=== PATIENT | male | born 1955 | race Caucasian/White ===

== ENCOUNTER 2017-05-09 13:00 | Outpatient (RCR) | payer OTHER | END 2017-05-10 12:39 | disposition still patient (30) | LOC: MKS.ESL.OT 13:00 | DX: I63.9 Cerebral infarction, unspecified (principal) ==

== ENCOUNTER 2017-07-26 12:30 | Outpatient (RCR) | payer OTHER | END 2017-07-30 | disposition home or self-care (01) | LOC: WSST | DX: I69.328 Other speech and language deficits following cerebral infarction (principal); I69.351 Hemiplegia and hemiparesis following cerebral infarction affecting right dominant side ==

== ENCOUNTER 2017-10-25 12:30 | Outpatient (RCR) | payer OTHER | END 2017-10-29 | disposition home or self-care (01) | LOC: MKS.ESL.PT | DX: I69.328 Other speech and language deficits following cerebral infarction (principal); I69.351 Hemiplegia and hemiparesis following cerebral infarction affecting right dominant side; I69.354 Hemiplegia and hemiparesis following cerebral infarction affecting left non-dominant side; I10 Essential (primary) hypertension; E11.9 Type 2 diabetes mellitus without complications ==

== ENCOUNTER 2017-11-02 13:48 | Day surgery (SDC) | payer OTHER ==
[~2017-11-02] VITALS: Ht 181.6 cm; Wt 72.7 kg
[2017-11-02] MEDS ORDERED: TRADJENTA5 MG PO (14:19)
[2017-11-02] MEDS ORDERED: ZANTAC 150MG T150 MG PO (14:19)
[2017-11-02] MEDS ORDERED: ZESTRIL 5MG5 MG PO (14:20)
[2017-11-02] MEDS ORDERED: FLOMAX 0.40.4 MG/CAP PO (14:20)
[2017-11-02] MEDS ORDERED: COLACE 100100 MG/CAP PO (14:21)
[2017-11-02] MEDS ORDERED: PLAVIX 75MG TAB75 MG PO (14:21)
[2017-11-02] MEDS ORDERED: CLARITIN 1010 MG/TAB PO (14:22)
[2017-11-02] MEDS ORDERED: CELEXA40 MG PO (14:22)
[2017-11-02] MEDS ORDERED: CEFTIN 250250 MG/TAB PO (14:23)
[2017-11-02] MEDS ORDERED: LIPITOR 80MG80 MG PO (14:23)
[2017-11-02] MEDS ORDERED: ASPIRIN E.C. 8181 MG PO (14:24)
[2017-11-02] MEDS ORDERED: NORVASC 10MG10 MG PO (14:24)
[2017-11-02 14:35] VITALS: BP 146/87; PULSE 72; TEMP 98.4
[2017-11-02 16:00] VITALS: BP 135/78; PULSE 69; TEMP 98
[2017-11-02 16:15] VITALS: BP 145/74; PULSE 68; TEMP 98
[2017-11-02 16:30] VITALS: BP 147/73; PULSE 72; TEMP 98
[2017-11-02 16:45] VITALS: BP 144/73; PULSE 70; TEMP 98
== END 2017-11-02 19:01 | disposition home or self-care (01) ==
LOC: SDCO 13:48 → SURG 16:00 → SDCO 19:01
DX: K86.89 Other specified diseases of pancreas (principal); K31.9 Disease of stomach and duodenum, unspecified; K59.00 Constipation, unspecified; E78.00 Pure hypercholesterolemia, unspecified; I12.9 Hypertensive chronic kidney disease with stage 1 through stage 4 chronic kidney disease, or unspecified chronic kidney disease; D50.9 Iron deficiency anemia, unspecified; G47.33 Obstructive sleep apnea (adult) (pediatric); K21.9 Gastro-esophageal reflux disease without esophagitis; N18.9 Chronic kidney disease, unspecified; E11.22 Type 2 diabetes mellitus with diabetic chronic kidney disease; Z79.82 Long term (current) use of aspirin; Z79.01 Long term (current) use of anticoagulants; Z80.0 Family history of malignant neoplasm of digestive organs; Z98.52 Vasectomy status; Z79.02 Long term (current) use of antithrombotics/antiplatelets; Z86.73 Personal history of transient ischemic attack (TIA), and cerebral infarction without residual deficits; Z79.2 Long term (current) use of antibiotics
CPT/HCPCS: OP; C1769; J7030; Q9967

== ENCOUNTER 2018-01-24 12:45 | Outpatient (RCR) | payer OTHER ==
[~2018-01-24 12:45] MED LIST: ASPIRIN E.C. 8181 MG PO; CEFTIN 250250 MG/TAB PO; CELEXA40 MG PO; CLARITIN 1010 MG/TAB PO; COLACE 100100 MG/CAP PO; FLOMAX 0.40.4 MG/CAP PO; LIPITOR 80MG80 MG PO; NORVASC 10MG10 MG PO; PLAVIX 75MG TAB75 MG PO; TRADJENTA5 MG PO; ZANTAC 150MG T150 MG PO; ZESTRIL 5MG5 MG PO
== END 2018-01-28 | disposition home or self-care (01) ==
LOC: WSST
DX: I69.313 Psychomotor deficit following cerebral infarction (principal); I69.354 Hemiplegia and hemiparesis following cerebral infarction affecting left non-dominant side; I69.351 Hemiplegia and hemiparesis following cerebral infarction affecting right dominant side; I69.928 Other speech and language deficits following unspecified cerebrovascular disease

== ENCOUNTER 2018-04-23 12:45 | Outpatient (RCR) | payer OTHER | END 2018-04-29 | disposition home or self-care (01) | LOC: WSST | DX: I69.334 Monoplegia of upper limb following cerebral infarction affecting left non-dominant side (principal); I69.331 Monoplegia of upper limb following cerebral infarction affecting right dominant side; I69.391 Dysphagia following cerebral infarction; R13.12 Dysphagia, oropharyngeal phase; I69.322 Dysarthria following cerebral infarction; I69.321 Dysphasia following cerebral infarction ==

== ENCOUNTER 2018-07-30 12:45 | Outpatient (RCR) | payer OTHER | END 2018-07-31 | disposition home or self-care (01) | LOC: MKS.ESL.PT | DX: I69.391 Dysphagia following cerebral infarction (principal); I69.322 Dysarthria following cerebral infarction ==

== ENCOUNTER → 2018-09-18 | Outpatient (CLI) | payer MEDICARE, OTHER | LOC: COL.RAD 15:52 | DX: I63.9 Cerebral infarction, unspecified (principal); Z87.19 Personal history of other diseases of the digestive system ==

== ENCOUNTER 2018-09-25 08:35 | Outpatient (CLI) | payer MEDICARE, OTHER ==
--- NOTE | 2018-09-20 10:30 | NUR ---
WILL CALL BACK AROUND [phone]
[~2018-09-25] VITALS: Ht 181.6 cm; Wt 170.0 kg
[2018-09-25] VITALS (7 sets, daily range): BP systolic 109–140; BP diastolic 50–87; PULSE 71–81; TEMP 97.9
[~2018-09-25 08:35] MED LIST changes: +LASIX 20MG TABL20 MG PO; +VITAMIN D 50,1.25 MG PO; +WELLBUTRIN 75MG75 MG PO; +[UNRECOGNIZED DRUG - OTHER]
[2018-09-25] MEDS ORDERED: LIPITOR 80MG80 MG PO (08:49)
[2018-09-25] MEDS ORDERED: cranberry PO (08:51)
--- NOTE | 2018-09-25 10:15 | NUR ---
Pt to EU 9 per cart s/p LP. Pt resting well, at bedside.
[2018-09-25 11:25] LABS: CSF APPEARANCE CLEAR; CSF COLOR COLORLESS; CSF MONONUCLEAR 100 % (70-100); CSF POLYMORPHONUCLEAR 0 % (0-6); CSF RBC 4 /mm3 (0-0)
[2018-09-25 11:26] LABS: GLUCOSE,CSF 116 mg/dL (40-70); TOTAL PROTEIN,CSF 112 mg/dL (15-45)
--- NOTE | 2018-09-25 12:00 | NUR ---
Pt has voided and reggie PO intake s n/v.
--- NOTE | 2018-09-25 12:15 | NUR ---
Pt transfered to w/c with assist of 2 and gait belt. Pt discharged per w/c by nurse with .
== END 2018-09-25 12:44 | disposition home or self-care (01) ==
LOC: COL.RAD 08:35
PROVIDERS: Psychiatry & Neurology Neurology
DX: R93.89 Abnormal findings on diagnostic imaging of other specified body structures (principal)

== ENCOUNTER 2018-10-29 13:00 | Outpatient (RCR) | payer MEDICARE, OTHER ==
[~2018-10-29 13:00] MED LIST changes: +cranberry PO
== END 2018-10-30 ==
LOC: MKS.ESL.OT
DX: I69.322 Dysarthria following cerebral infarction (principal); I69.391 Dysphagia following cerebral infarction; I69.344 Monoplegia of lower limb following cerebral infarction affecting left non-dominant side; I69.3 Sequelae of cerebral infarction; R13.12 Dysphagia, oropharyngeal phase

== ENCOUNTER 2019-01-28 12:45 | Outpatient (RCR) | payer MEDICARE, OTHER | END 2019-01-29 | disposition still patient (30) | LOC: WSST | DX: I63.9 Cerebral infarction, unspecified (principal); R47.1 Dysarthria and anarthria; R13.12 Dysphagia, oropharyngeal phase ==

== ENCOUNTER 2019-04-24 12:45 | Outpatient (RCR) | payer MEDICARE, OTHER | END 2019-04-30 | disposition home or self-care (01) | LOC: WSST | DX: I63.9 Cerebral infarction, unspecified (principal); R13.12 Dysphagia, oropharyngeal phase; R47.1 Dysarthria and anarthria ==

== ENCOUNTER 2019-05-22 12:45 | Outpatient (RCR) | payer MEDICARE, OTHER | END 2019-07-30 | disposition home or self-care (01) | LOC: WSST | DX: I69.991 Dysphagia following unspecified cerebrovascular disease (principal); R13.12 Dysphagia, oropharyngeal phase; I69.922 Dysarthria following unspecified cerebrovascular disease ==

== ENCOUNTER → 2020-05-10 | Outpatient (RCR) | payer MEDICARE, OTHER | END | disposition home or self-care (01) | LOC: WSST → MKS.ESL.PT 04-19 13:15 → WSST 04-21 13:00 → MKS.ESL.OT 05-03 13:00 → WSST 05-05 13:15 | DX: I69.922 Dysarthria following unspecified cerebrovascular disease (principal); I69.951 Hemiplegia and hemiparesis following unspecified cerebrovascular disease affecting right dominant side; I69.998 Other sequelae following unspecified cerebrovascular disease ==

== ENCOUNTER 2020-11-10 13:15 | Outpatient (RCR) | payer MEDICARE, OTHER | END 2020-11-14 | disposition home or self-care (01) | LOC: MKS.ESL.PT | DX: R53.1 Weakness (principal); Z86.73 Personal history of transient ischemic attack (TIA), and cerebral infarction without residual deficits ==

== ENCOUNTER 2021-02-07 13:15 | Outpatient (RCR) | payer MEDICARE, OTHER | END 2021-02-13 | disposition home or self-care (01) | LOC: MKS.ESL.PT | DX: R53.1 Weakness (principal); R47.1 Dysarthria and anarthria; Z86.73 Personal history of transient ischemic attack (TIA), and cerebral infarction without residual deficits ==

== ENCOUNTER 2021-05-04 13:15 | Outpatient (RCR) | payer MEDICARE, OTHER | END 2021-05-06 | disposition home or self-care (01) | LOC: MKS.ESL.PT | DX: I63.9 Cerebral infarction, unspecified (principal) | CPT/HCPCS: G0283-GP ==

== ENCOUNTER → 2021-07-04 | Outpatient (RCR) | payer MEDICARE, OTHER | END | disposition home or self-care (01) | LOC: MKS.ESL.PT | DX: R53.1 Weakness (principal); R47.1 Dysarthria and anarthria; Z86.73 Personal history of transient ischemic attack (TIA), and cerebral infarction without residual deficits ==

== ENCOUNTER 2021-08-03 14:00 | Outpatient (RCR) | payer MEDICARE, OTHER | END 2021-08-04 | disposition still patient (30) | LOC: MKS.ESL.PT | DX: R53.1 Weakness (principal); R47.1 Dysarthria and anarthria; Z86.73 Personal history of transient ischemic attack (TIA), and cerebral infarction without residual deficits ==

== ENCOUNTER 2021-08-31 14:00 | Outpatient (RCR) | payer MEDICARE, OTHER | END 2021-09-03 | disposition home or self-care (01) | LOC: WSST | DX: I69.322 Dysarthria following cerebral infarction (principal); R53.1 Weakness ==

== ENCOUNTER 2021-09-28 14:45 | Outpatient (RCR) | payer MEDICARE, OTHER | END 2021-10-04 | disposition still patient (30) | LOC: MKS.ESL.OT | DX: I69.322 Dysarthria following cerebral infarction (principal) ==

== ENCOUNTER 2021-10-27 13:00 | Outpatient (RCR) | payer MEDICARE, OTHER | END 2021-11-03 | disposition still patient (30) | LOC: MKS.ESL.OT | DX: R53.1 Weakness (principal); R47.1 Dysarthria and anarthria; Z86.73 Personal history of transient ischemic attack (TIA), and cerebral infarction without residual deficits ==

== ENCOUNTER 2021-11-15 13:00 | Outpatient (RCR) | payer MEDICARE, OTHER ==
[2021-11-16] MEDS ORDERED: LIORESAL 1010 MG/TAB PO (16:36)
[2021-11-16] MEDS ORDERED: GLUCOTROL 5M5 MG/TAB PO (16:36)
[2021-11-16] MEDS ORDERED: PRIL40 PO (22:56)
[2021-11-16] MEDS ORDERED: PEPCID 20MG TAB20 MG PO (22:57)
[2021-11-16] MEDS ORDERED: OMEGA-3 1000 MG1 CAP PO (22:58)
[2021-11-16] MEDS ORDERED: TYLENOL 325MG325 MG PO (22:59)
[2021-11-16] MEDS ORDERED: ORAJEL MM (23:00)
[2021-11-16] MEDS ORDERED: NUMBONEX30 GM TP (23:00)
[2021-11-16] MEDS ORDERED: MIRALAX PA17 GM/Dose PO (23:01)
[2021-11-22] MEDS ORDERED: AMOXICILLIN/CLA1 TA1 PO (10:18)
== END 2021-12-04 | disposition home or self-care (01) ==
LOC: MKS.ESL.OT
DX: I69.322 Dysarthria following cerebral infarction (principal); I69.398 Other sequelae of cerebral infarction

== ENCOUNTER 2021-11-16 14:12 | Inpatient (IN) | payer MEDICARE, OTHER ==
[~2021-11-16] VITALS: Ht 180.3 cm; Wt 77.3 kg
[2021-11-16 14:56] LABS: HEMATOCRIT 37.9 % (42.0-52.0); HEMOGLOBIN 12.4 g/dl (13.5-18.0); MEAN CELL VOLUME 85 fl (80.0-100.0); MEAN CORPUSCULAR HEMOGLOBIN 28 pg (27-31); MEAN CORPUSCULAR HGB CONC 33 g/dl (33.0-37.0); MEAN PLATELET VOLUME 9.6 fl (7.4-10.4); PLATELET COUNT 249 K/mm3 (130-400); RED BLOOD COUNT 4.48 M/mm3 (4.20-5.60); REDCELL DISTRIBUTION WIDTH-CV 13.8 % (11.5-14.5)
[2021-11-16 15:12] LABS: ALBUMIN 3.7 gm/dL (3.4-4.8); BILIRUBIN,TOTAL 0.7 mg/dL (0.2-1.2); CALCIUM 9.3 mg/dL (8.4-10.2); CREATININE, serum 2.33 mg/dL (0.72-1.25); POTASSIUM 4.1 mmol/L (3.5-4.5); TOTAL PROTEIN 7.7 gm/dL (6.2-8.1)
[2021-11-16 15:27] LABS: BAND 3 % (0-10); LYMPHOCYTE 2 % (20.0-51.0); NEUTROPHILS 87 % (42.0-75.2); PLATELET ESTIMATE NORMAL (NORMAL)
[2021-11-16 16:26] LABS: COLLECTION METHOD CLEAN CATCH
[2021-11-16] MEDS ORDERED: GLUCOTROL 5M5 MG/TAB PO (16:36)
[2021-11-16] MEDS ORDERED: LIORESAL 1010 MG/TAB PO (16:36)
[2021-11-16 16:56] LABS: PH 6 (5-8); SQUAMOUS EPITHELIAL 0-2 /hpf (0-10); URINE APPEARANCE Clear (CLEAR/HAZY); URINE BACTERIA None Seen /hpf (NONE SEEN); URINE BLOOD Negative (NEGATIVE); URINE COLOR Yellow (YELLOW); URINE GLUCOSE 3+ (NEGATIVE); URINE KETONE 1+ (NEGATIVE); URINE NITRATE Negative (NEGATIVE); URINE PROTEIN(semi-quant) 2+ (NEGATIVE); URINE RBC 0-2 /hpf (0-2); URINE UROBILINOGEN Negative (NEGATIVE)
[2021-11-16 18:28] VITALS: BP 155/87; PULSE 80; TEMP 98.6
--- NOTE | 2021-11-16 19:03 | NUR ---
Pt recently arrived to the floor from ED. Started IV fluids and finished infusing the antibiotic from ED. Report given to roving frame tender
[2021-11-16 19:58] VITALS: BP 148/72; PULSE 89; TEMP 99.8
[2021-11-16] MEDS ORDERED: PRIL40 PO (22:56)
[2021-11-16] MEDS ORDERED: PEPCID 20MG TAB20 MG PO (22:57)
[2021-11-16] MEDS ORDERED: OMEGA-3 1000 MG1 CAP PO (22:58)
[2021-11-16] MEDS ORDERED: TYLENOL 325MG325 MG PO (22:59)
[2021-11-16] MEDS ORDERED: ORAJEL MM (23:00)
[2021-11-16] MEDS ORDERED: NUMBONEX30 GM TP (23:00)
[2021-11-16] MEDS ORDERED: MIRALAX PA17 GM/Dose PO (23:01)
[2021-11-17] VITALS (8 sets, daily range): BP systolic 152–175; BP diastolic 70–85; PULSE 83–98; TEMP 96.8–100.3
[2021-11-17 02:24] LABS: COLLECTION METHOD CLEAN CATCH
--- NOTE | 2021-11-17 02:24 | NUR ---
PATIENT HAS NOT VOIDED ALL SHIFT. BLADDER SCAN REVEALED 804 IN BLADDER. CALL PLACED TO KAREN DAWSON, NEW ORDER FOR CASSIDY AND UA. 16F CASSIDY INSERTED WITH 10 MLS IN BALLOON. 800 MLS OUT INITIALLY. UA/CULTURE SENT DOWN PER ORDER. AWAITING RESULTS.
--- NOTE | 2021-11-17 02:31 | NUR ---
PATIENT IN BED. DENIES PAIN BUT HAS BEEN NAUSEATED ALL NIGHT. VOMITED X3 TIMES SMALL AMOUNT OF GREEN EMESIS. PATIENT HAS ALSO BEEN DRY HEAVING BETWEEN EPISODES. CALL TO KAREN DAWSON, AND PRN ZOFRAN AND PHENERGAN ORDERED AND GIVEN. PATIENT REMAINS NPO AT THIS TIME. IVF TO R UPPER ARM IV. ZOSYN INFUSING INTERMITTENTLY. HS MEDS PER EMAR. DENIES ADDITIONAL NEEDS AT THIS TIME.
[2021-11-17 02:32] LABS: MUCOUS Present (NOT PRESENT); PH 5 (5-8); SQUAMOUS EPITHELIAL 0-2 /hpf (0-10); URINE APPEARANCE Clear (CLEAR/HAZY); URINE BACTERIA None Seen /hpf (NONE SEEN); URINE BLOOD Negative (NEGATIVE); URINE COLOR Yellow (YELLOW); URINE GLUCOSE 3+ (NEGATIVE); URINE KETONE Trace (NEGATIVE); URINE NITRATE Negative (NEGATIVE); URINE PROTEIN(semi-quant) 3+ (NEGATIVE); URINE UROBILINOGEN Negative (NEGATIVE); URINE WBC 0-2 /hpf (0-2)
--- NOTE | 2021-11-17 04:16 | NUR ---
TEMP 100.2 AND BP 167/87 REPORTED TO KAREN DAWSON. ORDER FOR RECTAL TYLENOL. OK WITH BP WHERE IT IS FOR NOW.
[2021-11-17 07:03] LABS: HEMOGLOBIN 11.2 g/dl (13.5-18.0); MEAN CELL VOLUME 87 fl (80.0-100.0); MEAN CORPUSCULAR HEMOGLOBIN 28 pg (27-31); MEAN CORPUSCULAR HGB CONC 32 g/dl (33.0-37.0); MEAN PLATELET VOLUME 10.6 fl (7.4-10.4); PLATELET COUNT 238 K/mm3 (130-400); RED BLOOD COUNT 4.07 M/mm3 (4.20-5.60); REDCELL DISTRIBUTION WIDTH-CV 14.1 % (11.5-14.5)
[2021-11-17 07:13] LABS: HEMATOCRIT 35.3 % (42.0-52.0)
[2021-11-17 07:23] LABS: ALBUMIN 3.1 gm/dL (3.4-4.8); CREATININE, serum 2.21 mg/dL (0.72-1.25); MAGNESIUM 1.7 mg/dL (1.6-2.6); PHOSPHOROUS 2.9 mg/dL (2.3-4.7); POTASSIUM 3.7 mmol/L (3.5-4.5)
[2021-11-17 07:33] LABS: BAND 12 % (0-10); BASOPHIL 2 % (0-2); HYPOCHROMIA 2+; LYMPHOCYTE 5 % (20.0-51.0); NEUTROPHILS 65 % (42.0-75.2)
[2021-11-17 07:34] LABS: BURR CELLS 1+; OVALOCYTES 1+; PLATELET ESTIMATE NORMAL (NORMAL); POIKILOCYTOSIS 1+
--- NOTE | 2021-11-17 07:36 | NUR ---
INFORMED BEAN ALY OF PATIETNS CRITIAL WBC. NO NEW ORDERS GIVEN, PENDING ABD US
--- NOTE | 2021-11-17 14:19 | NUR ---
Sierra: Denominational Situation: Back Facer went to room on rounds Background: PT was resting and content Assessment: No needs right now. PT appreciated the visit Recommendation: Back Facer will follow up as needed
--- NOTE | 2021-11-17 16:32 | NUR ---
Warper Tender met with patient and patient's , Sierra (ph#[phone]) to discuss discharge planning. Patient has difficulty with communicating so Sierra answered questions on his behalf. Sierra advised she is patient's caregiver and provides total assistance with all ADLS. Patient goes to the [facility] for primary care and medications. Patient has a wheelchair, sit to stand lift, standing walker, and bedside commode at home. Patient goes to physical therapy twice a week at [facility] [place] on [address]. Sierra provided DPOA-HC which SW placed on patient's chart. Sierra also advised they have a bath aide from [facility]. Plan will be for return home at time of discharge. Discharge Plan: Home with and current supports
--- NOTE | 2021-11-17 19:17 | NUR ---
RECEIVED CHANGE OF SHIFT REPORT FROM DAY SHIFT RN.
--- NOTE | 2021-11-17 22:25 | NUR ---
DR FERGUSON CALLED IN TO NURSE, WANTING TO HAVE PATIENT TAKE ASA ORDERED, AND PATIENT CAN HAVE CLEAR LIQUIDS IF PAIENT HAS NO N/V/ABD PAIN. PATIENT INFORMED AND TOLERATED NECTAR THICKENED WATER WITH NO CHOKING OR C/O NAUSEA AT THIS TIME.
--- NOTE | 2021-11-17 23:09 | NUR ---
TOLERATED CRUSHED ASA WITH NECTAR THICKENED WATER WITH NO C/O NAUSEA/VOMITIING/ABD PAIN WITH ORAL MED/WATER TAKEN. NO OTHER NEEDS REPORTED BY PATIENT.
[2021-11-18 03:30] VITALS: BP 158/77; PULSE 76; TEMP 97.6
[2021-11-18 06:44] LABS: HEMOGLOBIN 11.3 g/dl (13.5-18.0); MEAN CELL VOLUME 88 fl (80.0-100.0); MEAN CORPUSCULAR HEMOGLOBIN 28 pg (27-31); MEAN CORPUSCULAR HGB CONC 32 g/dl (33.0-37.0); MEAN PLATELET VOLUME 10.4 fl (7.4-10.4); PLATELET COUNT 223 K/mm3 (130-400); RED BLOOD COUNT 4.05 M/mm3 (4.20-5.60); REDCELL DISTRIBUTION WIDTH-CV 14.5 % (11.5-14.5)
[2021-11-18 06:47] LABS: HEMATOCRIT 35.6 % (42.0-52.0)
[2021-11-18 06:51] LABS: ALBUMIN 2.5 gm/dL (3.4-4.8); CALCIUM 9.4 mg/dL (8.4-10.2); CREATININE, serum 2.29 mg/dL (0.72-1.25); MAGNESIUM 1.7 mg/dL (1.6-2.6); PHOSPHOROUS 2.8 mg/dL (2.3-4.7); POTASSIUM 3.4 mmol/L (3.5-4.5)
[2021-11-18 07:09] LABS: BAND 9 % (0-10); LYMPHOCYTE 3 % (20.0-51.0); NEUTROPHILS 82 % (42.0-75.2); PLATELET ESTIMATE NORMAL (NORMAL)
--- NOTE | 2021-11-18 07:24 | NUR ---
CHANGE OF SHIFT REPORT GIVEN TO DAY SHIFT RNOSCAR.
[2021-11-18 08:00] VITALS: BP 146/90; PULSE 84; TEMP 98.5
[2021-11-18 12:00] VITALS: BP 155/74; TEMP 99.1
[2021-11-18 15:54] VITALS: BP 147/72; PULSE 81; TEMP 97.9
[2021-11-18 16:59] LABS: CLOSTRIDIUM DIFF A/B NEG; CLOSTRIDIUM DIFF A/B INTERP No C.diff present
[2021-11-18 20:19] VITALS: BP 141/74; PULSE 79; TEMP 98.6
[2021-11-18 21:12] LABS: HEMOGLOBIN 11.1 g/dl (13.5-18.0)
[2021-11-18 21:13] LABS: HEMATOCRIT 34.1 % (42.0-52.0)
--- NOTE | 2021-11-18 21:36 | NUR ---
ASSESSMENT COMPLETE. PT SITTING UP IN BED. A&O. NO COMPLAINTS OF PAIN. PT. TURNED TO LEFT SIDE. CASSIDY SECURED AND DEPENDENT TO GRAVITY. ANTIBIOTICS INFUSING TO LEFT AC. CALL LIGHT IN REACH. NO FURHTER NEEDS AT THIS TIME.
[2021-11-18 23:27] VITALS: BP 152/79; PULSE 74; TEMP 97.8
[2021-11-19 03:53] VITALS: BP 152/72; PULSE 80; TEMP 98.9
[2021-11-19 05:59] LABS: MEAN CELL VOLUME 88 fl (80.0-100.0); MEAN CORPUSCULAR HGB CONC 32 g/dl (33.0-37.0); MEAN PLATELET VOLUME 10.5 fl (7.4-10.4); PLATELET COUNT 211 K/mm3 (130-400); RED BLOOD COUNT 3.52 M/mm3 (4.20-5.60); REDCELL DISTRIBUTION WIDTH-CV 14.6 % (11.5-14.5)
[2021-11-19 06:20] LABS: ALBUMIN 2.1 gm/dL (3.4-4.8); CALCIUM 8.9 mg/dL (8.4-10.2); CREATININE, serum 2.47 mg/dL (0.72-1.25); MAGNESIUM 1.6 mg/dL (1.6-2.6); PHOSPHOROUS 2.4 mg/dL (2.3-4.7); POTASSIUM 3.4 mmol/L (3.5-4.5)
[2021-11-19 06:31] LABS: HEMATOCRIT 30.8 % (42.0-52.0); HEMOGLOBIN 9.8 g/dl (13.5-18.0); MEAN CORPUSCULAR HEMOGLOBIN 28 pg (27-31)
[2021-11-19 06:35] LABS: BAND 8 % (0-10); EOSINOPHIL 1 % (0-4); LYMPHOCYTE 7 % (20.0-51.0); NEUTROPHILS 80 % (42.0-75.2); PLATELET ESTIMATE NORMAL (NORMAL)
[2021-11-19 06:37] LABS: HYPOCHROMIA 1+
[2021-11-19 08:00] VITALS: BP 145/76; PULSE 76; TEMP 99.3
[2021-11-19 12:00] VITALS: BP 155/72; PULSE 83; TEMP 99.2
[2021-11-19 15:28] VITALS: BP 124/72; PULSE 84; TEMP 98.3
[2021-11-19 20:20] VITALS: BP 165/82; PULSE 81; TEMP 98.8
--- NOTE | 2021-11-19 22:30 | NUR ---
ASSESSMENT COMPLETE. PT. SITTING UP IN BED WATCHING TV. A&O. NO COMPLAINTS OF PAIN. INT TO LEFT AC PATENT. CALL LIGHT IN REACH. NO FURHTER NEEDS AT THIS TIME.
[2021-11-19 23:20] VITALS: BP 159/85; PULSE 73; TEMP 100.1
[2021-11-20 03:53] VITALS: BP 137/65; PULSE 80; TEMP 79
[2021-11-20 07:12] LABS: MEAN CELL VOLUME 85 fl (80.0-100.0); MEAN CORPUSCULAR HEMOGLOBIN 28 pg (27-31); MEAN CORPUSCULAR HGB CONC 33 g/dl (33.0-37.0); MEAN PLATELET VOLUME 10.6 fl (7.4-10.4); PLATELET COUNT 242 K/mm3 (130-400); RED BLOOD COUNT 3.56 M/mm3 (4.20-5.60); REDCELL DISTRIBUTION WIDTH-CV 14.4 % (11.5-14.5)
[2021-11-20 07:16] LABS: HEMATOCRIT 30.2 % (42.0-52.0)
[2021-11-20 07:22] VITALS: BP 148/77; PULSE 77; TEMP 98.9
[2021-11-20 07:50] LABS: BAND 18 % (0-10); EOSINOPHIL 1 % (0-4); LYMPHOCYTE 9 % (20.0-51.0); NEUTROPHILS 69 % (42.0-75.2)
[2021-11-20 07:51] LABS: PLATELET ESTIMATE NORMAL (NORMAL)
[2021-11-20 08:01] LABS: CALCIUM 8.7 mg/dL (8.4-10.2); CREATININE, serum 2.49 mg/dL (0.72-1.25); MAGNESIUM 1.7 mg/dL (1.6-2.6); PHOSPHOROUS 2.3 mg/dL (2.3-4.7); POTASSIUM 3.3 mmol/L (3.5-4.5)
[2021-11-20 11:02] VITALS: BP 148/50; PULSE 81; TEMP 99.3
[2021-11-20 15:15] VITALS: BP 143/71; PULSE 74; TEMP 99.7
[2021-11-20 20:05] VITALS: BP 155/70; PULSE 76; TEMP 99.1
[2021-11-20 23:57] VITALS: BP 144/72; PULSE 72; TEMP 98.8
--- NOTE | 2021-11-21 01:50 | NUR ---
PATIENT IN BED ON ROOM ENTRY. ALERT AND ORIENTED. DENIES PAIN AND NAUSEA. HS MEDS PER EMAR. Q2 TURNS AND REQUESTED BY PATIENT HE HAS HAD TROUBLE GETTING COMFORTABLE THIS EVENING. PATIENT CONTINUES TO USE URINAL WITHOUT ISSUES. SOFT TOUCH CALL LIGHT IN PLACE.
[2021-11-21 04:14] VITALS: BP 157/82; PULSE 73; TEMP 99.6
[2021-11-21 06:43] LABS: MEAN CELL VOLUME 87 fl (80.0-100.0); MEAN CORPUSCULAR HEMOGLOBIN 28 pg (27-31); MEAN CORPUSCULAR HGB CONC 32 g/dl (33.0-37.0); MEAN PLATELET VOLUME 10.4 fl (7.4-10.4); PLATELET COUNT 258 K/mm3 (130-400); RED BLOOD COUNT 3.64 M/mm3 (4.20-5.60); REDCELL DISTRIBUTION WIDTH-CV 14.6 % (11.5-14.5)
[2021-11-21 06:55] LABS: HEMATOCRIT 31.7 % (42.0-52.0)
[2021-11-21 07:17] LABS: CREATININE, serum 2.59 mg/dL (0.72-1.25); MAGNESIUM 1.8 mg/dL (1.6-2.6); PHOSPHOROUS 2.8 mg/dL (2.3-4.7); POTASSIUM 3.8 mmol/L (3.5-4.5)
[2021-11-21 07:30] VITALS: BP 139/82; BP 158/74; PULSE 72; PULSE 79; TEMP 100.2; TEMP 98.7
[2021-11-21 07:43] LABS: BAND 1 % (0-10); EOSINOPHIL 3 % (0-4); LYMPHOCYTE 11 % (20.0-51.0); NEUTROPHILS 78 % (42.0-75.2)
[2021-11-21 07:44] LABS: HYPOCHROMIA 2+; PLATELET ESTIMATE NORMAL (NORMAL)
--- NOTE | 2021-11-21 10:33 | NUR ---
PT is recommending return home with caregivers. SW met with the patient to follow up. The patient was resting. He states that he still plans to return home with his and previous services upon discharge. He had no concerns for SW. *Discharge plan: home with and previous services*
[2021-11-21 11:28] VITALS: BP 147/73; PULSE 77; TEMP 98.5
[2021-11-21 15:11] VITALS: BP 130/70; PULSE 70; TEMP 98.4
--- NOTE | 2021-11-21 16:08 | NUR ---
PT notified AYLA that the physical therapist at the outpatient clinic the patient goes to, informed him that they believe the patient and his should consider SNF. AYLA met with the patient and his , Sierra, to discuss their recommendation. The patient's declined and states that she has been taking care of the patient for 5 years and knows what to do and what he needs. She states that the physical therapy here, did not do anything with the patient this morning. She plans on bringing the patient home upon discharge.
--- NOTE | 2021-11-21 21:00 | NUR ---
Pt. sitting up in bed. Pt. is a&OX3, assessment complete. INT to lt. ac patent. Pt. denies pain or other needs, call light within reach.
[2021-11-21 21:06] VITALS: BP 149/76; PULSE 71; TEMP 98.8
[2021-11-22 00:35] VITALS: BP 140/80; PULSE 68; TEMP 99.5
[2021-11-22 03:49] VITALS: BP 155/76; PULSE 73; TEMP 98.5
[2021-11-22 07:41] VITALS: BP 177/76; PULSE 73; TEMP 99.3
[2021-11-22] MEDS ORDERED: AMOXICILLIN/CLA1 TA1 PO (10:18)
[2021-11-22 11:08] LABS: HEMOGLOBIN 10.6 g/dl (13.5-18.0); MEAN CELL VOLUME 87 fl (80.0-100.0); MEAN CORPUSCULAR HEMOGLOBIN 28 pg (27-31); MEAN CORPUSCULAR HGB CONC 32 g/dl (33.0-37.0); MEAN PLATELET VOLUME 9.8 fl (7.4-10.4); PLATELET COUNT 285 K/mm3 (130-400); RED BLOOD COUNT 3.84 M/mm3 (4.20-5.60); REDCELL DISTRIBUTION WIDTH-CV 14.6 % (11.5-14.5)
[2021-11-22 11:09] LABS: HEMATOCRIT 33.2 % (42.0-52.0)
[2021-11-22 11:28] LABS: CALCIUM 9.1 mg/dL (8.4-10.2); CREATININE, serum 2.48 mg/dL (0.72-1.25); MAGNESIUM 1.8 mg/dL (1.6-2.6); POTASSIUM 4.2 mmol/L (3.5-4.5)
[2021-11-22 11:36] LABS: BAND 3 % (0-10); EOSINOPHIL 1 % (0-4); LYMPHOCYTE 8 % (20.0-51.0); METAMYELOCYTE 1 % (0-0); NEUTROPHILS 78 % (42.0-75.2); PLATELET ESTIMATE NORMAL (NORMAL)
[2021-11-22 12:00] VITALS: BP 168/82; PULSE 72; TEMP 98.7
--- NOTE | 2021-11-22 12:07 | NUR ---
The hospitalist is ready to discharge the patient today. SW contacted the patient's , Sierra, to review discharge plan. She confirms that plan is for the patient to return home with her with previous services, outpatient PT and a bathe aide from [facility]. AYLA presented and read the IM form outloud to Sierra over the phone. Sierra verbalized understanding and of discharge today and gave AYLA approval to sign the form on her behalf. No additional needs at this time.
--- NOTE | 2021-11-22 13:53 | NUR ---
1300 - REQUEST MADE TO DR. PERRY TO SPECIFICALLY ORDER FOR PATIENT TO HAVE LABS DRAWN AT LEAST ONE WEEK POST DISCHARGE SO APPT COULD BE MADE FOR PATIENT. MD STATED THAT SHE WOULD ONLY MAKE THIS A RECOMMENDATION, NOT AN ORDER. NO APPOINTMENT ABLE TO BE MADE FOR PATIENT THERE IS NO ORDER. DISCHARGE INSTRUCTIONS AND PATIENT EDUCATION PROVIDED AND ALL QUESTIONS ANSWERED WITH PATIENT AND . PATIENT SAFELY TRANSPORTED TO VEHICLE WITH AND STAFF.
== END 2021-11-22 13:56 | disposition home health service (06) | DRG 872 ==
LOC: COL.ER 14:12 → SURG 16:51
PROVIDERS: Family Medicine; Internal Medicine Infectious Disease; Nurse Practitioner Family; Physician Assistant; ADMIT Internal Medicine
DX: A41.9 Sepsis, unspecified organism (principal); N17.9 Acute kidney failure, unspecified; N18.4 Chronic kidney disease, stage 4 (severe); E11.9 Type 2 diabetes mellitus without complications; I12.9 Hypertensive chronic kidney disease with stage 1 through stage 4 chronic kidney disease, or unspecified chronic kidney disease; K59.00 Constipation, unspecified; R19.7 Diarrhea, unspecified; K80.20 Calculus of gallbladder without cholecystitis without obstruction; R31.9 Hematuria, unspecified; Z86.73 Personal history of transient ischemic attack (TIA), and cerebral infarction without residual deficits; Z79.82 Long term (current) use of aspirin; Z79.02 Long term (current) use of antithrombotics/antiplatelets; Z79.84 Long term (current) use of oral hypoglycemic drugs
CPT/HCPCS: OP; 99223-AI; 99233-AI; 99239; C9113; G0378; J0360; J1644; J1815; J2270; J2405; J2543; J2550; J3370; J7030; J7050

== ENCOUNTER 2022-01-03 14:30 | Outpatient (RCR) | payer MEDICARE, OTHER ==
[~2022-01-03 14:30] MED LIST changes: +AMOXICILLIN/CLA1 TA1 PO; +GLUCOTROL 5M5 MG/TAB PO; +LIORESAL 1010 MG/TAB PO; +MIRALAX PA17 GM/Dose PO; +NUMBONEX30 GM TP; +OMEGA-3 1000 MG1 CAP PO; +ORAJEL MM; +PEPCID 20MG TAB20 MG PO; +PRIL40 PO; +TYLENOL 325MG325 MG PO
== END 2022-01-04 | disposition home or self-care (01) ==
LOC: MKS.ESL.PT
DX: R53.1 Weakness (principal); Z86.73 Personal history of transient ischemic attack (TIA), and cerebral infarction without residual deficits

== ENCOUNTER 2022-02-21 14:30 | Outpatient (RCR) | payer MEDICARE, OTHER ==
[2022-02-28] MEDS ORDERED: LIORESAL 1010 MG/TAB PO (18:47)
[2022-02-28] MEDS ORDERED: WELLBUTRIN 75MG75 MG PO (18:48)
[2022-02-28] MEDS ORDERED: CELEXA40 MG PO (18:49)
[2022-02-28] MEDS ORDERED: PEPCID 20MG TAB20 MG PO (18:49)
[2022-02-28] MEDS ORDERED: GLUCOTROL 5M5 MG/TAB PO (18:50)
[2022-02-28] MEDS ORDERED: LASIX 40MG TABL40 MG PO (18:50)
[2022-02-28] MEDS ORDERED: FLOMAX 0.40.4 MG/CAP PO (18:50)
[2022-02-28] MEDS ORDERED: CRANBERRY250 MG PO (18:51)
[2022-02-28] MEDS ORDERED: TRULICITY0.75 MG/0. SQ (18:52)
[2022-03-06] MEDS ORDERED: FLAGYL500 MG PO (08:31)
[2022-03-06] MEDS ORDERED: LEVAQUIN 5500 MG/TA1 PO (08:33)
[2022-03-06] MEDS ORDERED: APRESOLINE 25MG25 MG PO (08:35)
== END 2022-03-06 | disposition home or self-care (01) ==
LOC: MKS.ESL.PT
DX: R53.1 Weakness (principal); Z86.73 Personal history of transient ischemic attack (TIA), and cerebral infarction without residual deficits

== ENCOUNTER 2022-02-28 15:18 | Inpatient (IN) | payer MEDICARE, OTHER ==
[~2022-02-28] VITALS: Ht 180.3 cm; Wt 74.3 kg
[2022-02-28 16:20] LABS: BASO # 0.1 K/mm3 (0.0-0.2); BASO % 0.5 % (0.0-2.0); EOS # 0.2 K/mm3 (0.0-0.7); EOS % 1.3 % (0.0-4.0); GRAN # 10.2 K/mm3 (1.4-6.5); GRAN % 84.3 % (42.2-75.2); HEMATOCRIT 37.8 % (42.0-52.0); LYMPH # 0.7 K/mm3 (1.2-3.4); LYMPH % 5.8 % (20.0-51.0); MEAN CELL VOLUME 86 fl (80.0-100.0); MEAN CORPUSCULAR HEMOGLOBIN 27 pg (27-31); MEAN CORPUSCULAR HGB CONC 32 g/dl (33.0-37.0); MONO # 0.9 K/mm3 (0.1-0.6); MONO % 7.8 % (1.7-9.3); PLATELET COUNT 260 K/mm3 (130-400); RED BLOOD COUNT 4.41 M/mm3 (4.20-5.60); REDCELL DISTRIBUTION WIDTH-CV 13.5 % (11.5-14.5)
[2022-02-28 16:40] LABS: COLLECTION METHOD CLEAN CATCH
[2022-02-28 16:44] LABS: URINE APPEARANCE Clear (CLEAR/HAZY); URINE COLOR Amber (YELLOW)
[2022-02-28 16:45] LABS: PH 5.5 (5.0-8.5)
[2022-02-28 16:46] LABS: URINE BLOOD TRACE-INTACT (NEGATIVE); URINE GLUCOSE TRACE (NEGATIVE); URINE KETONE Negative (NEGATIVE); URINE NITRATE Negative (NEGATIVE); URINE PROTEIN(semi-quant) 3+ (NEGATIVE)
[2022-02-28 16:54] LABS: MUCOUS Present (NOT PRESENT); SQUAMOUS EPITHELIAL 0-2 /hpf (0-10); URINE BACTERIA None Seen /hpf (NONE SEEN)
[2022-02-28 16:59] LABS: ALANINE AMINOTRANSFERASE 401 U/L (0-55); ALBUMIN 2.9 gm/dL (3.4-4.8); ALKALINE PHOSPHATASE 604 U/L (40-150); ANION GAP 11 mmol/L (7-16); AST,SGOT 298 U/L (5-34); BILIRUBIN,TOTAL 2.3 mg/dL (0.2-1.2); BLOOD UREA NITROGEN 25 mg/dL (8-26); CALCIUM 9.3 mg/dL (8.4-10.2); CARBON DIOXIDE 25 mmol/L (23-31); CHLORIDE 102 mmol/L (98-107); CREATININE, serum 2.32 mg/dL (0.72-1.25); GLUCOSE 134 mg/dL (70-99); LIPASE 17 U/L (8-78); POTASSIUM 4.1 mmol/L (3.5-4.5); SODIUM 138 mmol/L (136-145); TOTAL PROTEIN 7.4 gm/dL (6.2-8.1)
[2022-02-28 17:09] LABS: TROPONIN-I < 0.010 ng/mL (0.00-0.033)
[2022-02-28] MEDS ORDERED: LIORESAL 1010 MG/TAB PO (18:47)
[2022-02-28] MEDS ORDERED: WELLBUTRIN 75MG75 MG PO (18:48)
[2022-02-28] MEDS ORDERED: PEPCID 20MG TAB20 MG PO (18:49)
[2022-02-28] MEDS ORDERED: CELEXA40 MG PO (18:49)
[2022-02-28] MEDS ORDERED: LASIX 40MG TABL40 MG PO (18:50)
[2022-02-28] MEDS ORDERED: GLUCOTROL 5M5 MG/TAB PO (18:50)
[2022-02-28] MEDS ORDERED: FLOMAX 0.40.4 MG/CAP PO (18:50)
[2022-02-28] MEDS ORDERED: CRANBERRY250 MG PO (18:51)
[2022-02-28] MEDS ORDERED: TRULICITY0.75 MG/0. SQ (18:52)
--- NOTE | 2022-02-28 23:38 | NUR ---
Patient arrived to medical unit from ER at approximately 2145. Denies having pain and discomfort. Peripheral INT to left hand. Started IV fluids per orders. Denies SOB and dyspnea. Patient is having nausea. Called ADELAIDE Maria, and received new order for PRN Zofran, and given per orders. Patient has sore to coccyx area, mepilex placed. Voices no questions, needs, or concerns at this time. In bed with call light within reach. Candace ok'd patient to have ice chips.
[2022-03-01] VITALS: BP 136/60; PULSE 85; TEMP 98.9
[2022-03-01 04:00] VITALS: BP 136/62; PULSE 77; TEMP 98.9
--- NOTE | 2022-03-01 05:24 | NUR ---
Patient has had no further complaints of nausea this shift since receiving PRN Zofran. IV fluids changed to D5NS due to blood sugar of 83 around midnight. Voices no questions, needs, or concerns at this time. Continues on IV ABX per orders. In bed with call light within reach. High fall risk precautions in place. Bed alarm on.
[2022-03-01 06:50] LABS: BASO % 0.4 % (0.0-2.0); EOS # 0.4 K/mm3 (0.0-0.7); EOS % 4.5 % (0.0-4.0); GRAN # 7.1 K/mm3 (1.4-6.5); GRAN % 76.3 % (42.2-75.2); HEMOGLOBIN 11.1 g/dl (13.5-18.0); LYMPH # 0.7 K/mm3 (1.2-3.4); LYMPH % 7.5 % (20.0-51.0); MEAN CELL VOLUME 87 fl (80.0-100.0); MEAN CORPUSCULAR HEMOGLOBIN 27 pg (27-31); MEAN CORPUSCULAR HGB CONC 31 g/dl (33.0-37.0); MONO % 10.9 % (1.7-9.3); PLATELET COUNT 232 K/mm3 (130-400); RED BLOOD COUNT 4.08 M/mm3 (4.20-5.60); REDCELL DISTRIBUTION WIDTH-CV 13.6 % (11.5-14.5)
[2022-03-01 07:05] LABS: HEMATOCRIT 35.3 % (42.0-52.0)
[2022-03-01 07:19] LABS: ALBUMIN 2.7 gm/dL (3.4-4.8); BILIRUBIN,TOTAL 2.2 mg/dL (0.2-1.2); CALCIUM 8.6 mg/dL (8.4-10.2); CREATININE, serum 2.22 mg/dL (0.72-1.25); POTASSIUM 3.7 mmol/L (3.5-4.5); TOTAL PROTEIN 6.2 gm/dL (6.2-8.1)
[2022-03-01 08:16] VITALS: BP 169/76; PULSE 72; TEMP 98.4
--- NOTE | 2022-03-01 08:40 | NUR ---
Pt. laying in bed. Pt. is A&OX3, assessment complete. IV to lt. hand patent. Pt. denies pain. Pt. refused oral meds. Pt. denies further needs.
--- NOTE | 2022-03-01 11:41 | NUR ---
The patient was downgraded to observation status. AYLA met with the patient to discuss discharge plan. 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 SW had a difficult time understanding and hearing the patient, as he was falling asleep. AYLA contacted the patient's , Sierra, to complete intake and to inform of the patient being downgraded to observation. AYLA read the Medicare Outpatient Observation Notice Form outloud to Sierra, over the phone. Sierra verbalized understanding and gave AYLA approval to sign the form on her behalf. AYLA placed a copy in the patient's room. The patient lives in [place] with his and their son. Sierra states that the patient is wheelchair bound and requires total care. Sierra and their son provide the patient with all care needs. They do have a bath aide from [facility] that comes once a week. The patient's primary care provider is CHAPIN Ratliff at the [facility] and he [place] his medications from the [place] [address]. The patient's DPOA-HC is in EMR and it designates his . Sierra reports that the plan is for the patient to return back home with her and her son upon discharge. She has no concerns or questions for SW. No additional needs at this time. *Discharge plan: home with family*
[2022-03-01 12:07] VITALS: BP 162/71; PULSE 73; TEMP 99
[2022-03-01 15:49] VITALS: BP 164/98; PULSE 78; TEMP 100.2
[2022-03-01 20:00] VITALS: BP 195/84; PULSE 75; TEMP 98.3
[2022-03-02] VITALS: BP 128/59; PULSE 73; TEMP 98.4
[2022-03-02 04:18] VITALS: BP 145/62; PULSE 68; TEMP 98.8
--- NOTE | 2022-03-02 05:56 | NUR ---
PT had lg soft stool using bedpan last evening, refused any further bowel movers for now, able to take pills in small bite of vanilla pudding. no reported N/V or abd pain this shift. no SSI needed. IVF infusing @75 cc/hr per piv. voiding using urinal
[2022-03-02 08:00] VITALS: BP 172/81; PULSE 67; TEMP 98.6
--- NOTE | 2022-03-02 09:38 | NUR ---
Pt assessment complete. Pt sleeping in bed upon entry, arouses to voice. He is A/O x4. His breathing is even and unlabored on RA. Pt denies any pain. Elevated BP, PRN dose of Apresoline given. Pt denies nausea. Updated with the POC. No further needs at this time. Call light within reach.
[2022-03-02 11:14] VITALS: BP 151/71; PULSE 67; TEMP 98.4
[2022-03-02 15:28] VITALS: BP 170/80; PULSE 66; TEMP 97.6
--- NOTE | 2022-03-02 18:43 | NUR ---
Pt had several stools today, incontinent care provided. Repositioning provided. No pain or nausea through the day, tolerated clears without issues. Call light within reach.
[2022-03-02 20:00] VITALS: BP 172/82; PULSE 68; TEMP 98.3
[2022-03-03] VITALS (13 sets, daily range): BP systolic 109–176; BP diastolic 62–78; PULSE 70–95; TEMP 97.5–98.2
--- NOTE | 2022-03-03 05:28 | NUR ---
BP 176/77, hydralazine 10mg given slow IVP, pt NPO since midnight, D5NS infusing @ 75cc/hr, no c/o pain this shift, turned q2, voids using urinal with assistance.
[2022-03-03 07:34] LABS: ALBUMIN 2.3 gm/dL (3.4-4.8); BILIRUBIN,TOTAL 0.8 mg/dL (0.2-1.2); CALCIUM 8.5 mg/dL (8.4-10.2); CREATININE, serum 2.52 mg/dL (0.72-1.25); POTASSIUM 3.2 mmol/L (3.5-4.5); TOTAL PROTEIN 6.3 gm/dL (6.2-8.1)
--- NOTE | 2022-03-03 09:12 | NUR ---
PT RESTING QUIETLY IN BED. PT IS NPO FOR SURGERY. PT IS WHEEL CHAIR BOUND. PLAN ON SURGERY THIS PM.
--- NOTE | 2022-03-03 14:41 | NUR ---
REVIEWED DISCHARGE INSTRUCTIONS WITH PT AND SISTER QUESTIONS SOLICITED AND ANSWERED. PT LEFT UNIT BY WHEEL CHAIR WITH STAFF.DRESSING CHANGE COMPLETE PER ORDERS.
--- NOTE | 2022-03-03 15:44 | NUR ---
REPORT TO CHELSEY ALVAREZ PACU.
--- NOTE | 2022-03-03 23:00 | NUR ---
Patient arrived to the floor from PACU at 1935, slighty drowsy, VSS, with 3 band aids to the abdomen and abd to the right lateral side, with ANDREA drain draining serosanguinous, tolerated the jello, IV dilaudid given d/t patient complaining of pain, IV to left hand with LR running, head to toe toe assessment done, called Dr. Azul and clarified the medications and I got an order to give the Magnesium Sulfate and Flagyl, and hold the Aspirin, will continue to monitor, call light and personal items within reach.
[2022-03-04 00:15] VITALS: BP 160/84; PULSE 88; TEMP 98.4
[2022-03-04 03:02] VITALS: BP 148/79; PULSE 92; TEMP 98.6
--- NOTE | 2022-03-04 04:30 | NUR ---
Repositioned patient at this time, patient had a bm, tolerated fluids well, no nausea/vomting, still with IV infusing well to LH, with ANDREA drain to suction draining serousaneous fluids.
[2022-03-04 06:45] LABS: BASO % 0.1 % (0.0-2.0); GRAN # 14.7 K/mm3 (1.4-6.5); GRAN % 87.9 % (42.2-75.2); HEMOGLOBIN 10.7 g/dl (13.5-18.0); LYMPH # 0.6 K/mm3 (1.2-3.4); LYMPH % 3.5 % (20.0-51.0); MEAN CELL VOLUME 87 fl (80.0-100.0); MEAN CORPUSCULAR HEMOGLOBIN 27 pg (27-31); MEAN CORPUSCULAR HGB CONC 31 g/dl (33.0-37.0); MEAN PLATELET VOLUME 10.2 fl (7.4-10.4); MONO # 1.4 K/mm3 (0.1-0.6); PLATELET COUNT 264 K/mm3 (130-400); RED BLOOD COUNT 4.02 M/mm3 (4.20-5.60); REDCELL DISTRIBUTION WIDTH-CV 13.9 % (11.5-14.5)
[2022-03-04 07:04] LABS: ALBUMIN 2.5 gm/dL (3.4-4.8); BILIRUBIN,TOTAL 0.7 mg/dL (0.2-1.2); CALCIUM 8.9 mg/dL (8.4-10.2); CREATININE, serum 2.47 mg/dL (0.72-1.25); MAGNESIUM 1.8 mg/dL (1.6-2.6); POTASSIUM 3.8 mmol/L (3.5-4.5); TOTAL PROTEIN 7.1 gm/dL (6.2-8.1)
[2022-03-04 08:23] VITALS: BP 152/79; PULSE 81; TEMP 97.6
--- NOTE | 2022-03-04 09:19 | NUR ---
Patient resting in bed. awake & alert. Cardiac Cath Rn assissted him with breakfast tray. Good appetite, denies nausea. abdomen soft. He reports passing flatus. bandaids CDI. Demarco drain to compression. He is voiding with assist using urinal. Ivf per orders. Scds ble. Heel protectors on. Patinet repositioned in bed & allyven foam applied to coccyx. Will monitor.
--- NOTE | 2022-03-04 12:44 | NUR ---
Transistor Tester rounds: This Patient is the grandfather of one of the new babies on the OB vela. He is excited that his daughter had a little boy. He expressed a desire for his sons to now give him grandchildren as well. Transistor Tester and Patient talked about football. Transistor Tester found the correct time and channel for the [place] game this afternoon. Transistor Tester assisted Patient with drinking his orange juice and eating the grapes still on his bedside table from breakfast. Transistor Tester prayed for Patient. Patient is Christianity. Transistor Tester offered to contact a wing scorer. Patient declined. He stated that it was enough that a Transistor Tester had been to visit him.
[2022-03-04 12:53] VITALS: BP 140/65; PULSE 89; TEMP 98.3
[2022-03-04 16:04] VITALS: BP 127/64; PULSE 80; TEMP 98.6
[2022-03-04 19:35] VITALS: BP 145/82; PULSE 84; TEMP 98.4
--- NOTE | 2022-03-04 19:49 | NUR ---
Patient sitting up in bed, working on dinner tray. He did not get what he wanted for dinner, but has had a good appetite today. He has reported pain to Right side around drain site, repositioning helps. Minimal output from ANDREA drain. Ivf & antibioitcs as ordered. Patient voiding using urinal. Repot to night nurse
--- NOTE | 2022-03-04 22:00 | NUR ---
Patient A/Ox4, VSS, head to toe assessment done, repositioned regulary, ate 50% of his dinner, abdomen dressing clean, dry and intact, allevyn dressing to sacral clean, dry and intact, no further needs or concerns at this time, call light and personal items within reach, will continue to monitor.
[2022-03-05] VITALS (7 sets, daily range): BP systolic 146–168; BP diastolic 67–94; PULSE 70–85; TEMP 97.6–99.5
--- NOTE | 2022-03-05 09:25 | NUR ---
PT RESTING IN BED, STATES HE DIDN'T GET MUCH SLEEP OVERNIGHT. MORNING MEDICATIONS GIVEN. SHIFT ASSESSMENT COMPLETED. PT DENIES ANY PAIN AT REST, REPORTS PAIN TO ABDOMEN WITH MOVEMENT. X3 LAP SITES C/D/I WITH BANDAIDS IN PLACE. ANDREA DRAIN IN PLACE, GAUZE DRESSING C/D/I, SCANT DAINAGE NOTED TO BULB, BULB COMPRESSED AT THIS TIME. PT DENIES ANY NEEDS AT THIS TIME. WILL CONTINUE TO MONITOR. CALL LIGHT WITHIN REACH.
--- NOTE | 2022-03-05 10:15 | NUR ---
ANDREA DRAIN D/C AT THIS TIME. MODERATE AMOUNT OF DRAINAGE NOTED UPON REMOVAL. 4X4 GAUZE PADS IN PLACE WITH TEGADERM DRESSING.
--- NOTE | 2022-03-06 00:49 | NUR ---
PATIENT IN BED WATCHING BALL GAME AT THIS TIME. PATIENT REQUESTS ICE CHIPS AND THIS NURSE PROVIDED. PATIENT REQUESTED HIS CALL LIGHT BE PLACED ON HIS CHEST AND CALL LIGHT BE PLACED ALONG SIDE RAIL AND THIS NURSE DID REQUESTED. PATIENT DENIES FURTHER NEEDS OR CONCERNS.
[2022-03-06 03:50] VITALS: BP 179/86; PULSE 84; TEMP 99.4
[2022-03-06 06:49] LABS: BASO % 0.3 % (0.0-2.0); EOS # 0.6 K/mm3 (0.0-0.7); GRAN # 8.9 K/mm3 (1.4-6.5); GRAN % 71.7 % (42.2-75.2); LYMPH # 1.4 K/mm3 (1.2-3.4); LYMPH % 11.3 % (20.0-51.0); MEAN CELL VOLUME 84 fl (80.0-100.0); MEAN CORPUSCULAR HGB CONC 32 g/dl (33.0-37.0); MEAN PLATELET VOLUME 10.1 fl (7.4-10.4); MONO # 1.4 K/mm3 (0.1-0.6); MONO % 11.1 % (1.7-9.3); PLATELET COUNT 292 K/mm3 (130-400); RED BLOOD COUNT 3.45 M/mm3 (4.20-5.60)
[2022-03-06 06:52] LABS: HEMATOCRIT 29.1 % (42.0-52.0); HEMOGLOBIN 9.4 g/dl (13.5-18.0); MEAN CORPUSCULAR HEMOGLOBIN 27 pg (27-31)
[2022-03-06 07:19] LABS: ALBUMIN 2.2 gm/dL (3.4-4.8); BILIRUBIN,TOTAL 0.4 mg/dL (0.2-1.2); CREATININE, serum 2.19 mg/dL (0.72-1.25); MAGNESIUM 1.5 mg/dL (1.6-2.6); POTASSIUM 3.7 mmol/L (3.5-4.5); TOTAL PROTEIN 5.6 gm/dL (6.2-8.1)
[2022-03-06 08:03] VITALS: BP 167/80; PULSE 77; TEMP 99.8
[2022-03-06] MEDS ORDERED: FLAGYL500 MG PO (08:31)
[2022-03-06] MEDS ORDERED: LEVAQUIN 5500 MG/TA1 PO (08:33)
[2022-03-06] MEDS ORDERED: APRESOLINE 25MG25 MG PO (08:35)
--- NOTE | 2022-03-06 11:04 | NUR ---
The clinical team is ready to discharge the patient today. SW contacted the patient's , Sierra, to review discharge plan. Sierra had no concerns for SW. AYLA discussed home health services. Sierra states that they are not interested and do not need home health at this time. AYLA read the IM form outloud to Sierra over the phone. Sierra verbalized understanding and agreement to discharge today. She gave SW approval to sign the form on her behalf. No additional needs at this time.
[2022-03-06 12:32] VITALS: BP 161/82; PULSE 76; TEMP 98.8
--- NOTE | 2022-03-06 16:09 | NUR ---
Discharge instructions and paperwork reviewed with patient and his . All questions answered at this time. IV to L hand dc'd catheter tip intact. Pt wheeled out by family members at this time.
== END 2022-03-06 16:09 | disposition home or self-care (01) | DRG 418 ==
LOC: COL.ER 15:18 → SURG 19:30
PROVIDERS: Emergency Medicine; Nurse Practitioner Family; Physician Assistant; Surgery; ADMIT Internal Medicine
PROC: 0FT44ZZ Resection of Gallbladder, Percutaneous Endoscopic Approach (ICD-10-PCS; principal; 2022-03-05)
PROC: 8E0W4CZ Robotic Assisted Procedure of Trunk Region, Percutaneous Endoscopic Approach (ICD-10-PCS; 2022-03-05)
DX: K80.12 Calculus of gallbladder with acute and chronic cholecystitis without obstruction (principal); I69.351 Hemiplegia and hemiparesis following cerebral infarction affecting right dominant side; I69.354 Hemiplegia and hemiparesis following cerebral infarction affecting left non-dominant side; K82.A2 Perforation of gallbladder in cholecystitis; K82.A1 Gangrene of gallbladder in cholecystitis; K56.41 Fecal impaction; I12.9 Hypertensive chronic kidney disease with stage 1 through stage 4 chronic kidney disease, or unspecified chronic kidney disease; E11.22 Type 2 diabetes mellitus with diabetic chronic kidney disease; N18.9 Chronic kidney disease, unspecified; Z79.85 Long-term (current) use of injectable non-insulin antidiabetic drugs; D64.9 Anemia, unspecified; Z79.02 Long term (current) use of antithrombotics/antiplatelets; Z79.82 Long term (current) use of aspirin
CPT/HCPCS: C9113; G0378; J0360; J0690; J0696; J1100; J1170; J1815; J2370; J2405; J2543; J2704; J2765; J3010; J3475; J3480; J7030; J7042; J7120; Q9967

== ENCOUNTER → 2022-06-28 | Outpatient (CLI) | payer MEDICARE, OTHER ==
[~2022-06-28] MED LIST changes: +APRESOLINE 25MG25 MG PO; +CRANBERRY250 MG PO; +FLAGYL500 MG PO; +LASIX 40MG TABL40 MG PO; +LEVAQUIN 5500 MG/TA1 PO; +TRULICITY0.75 MG/0. SQ
== END ==
LOC: COL.RAD 07:18
DX: K31.84 Gastroparesis (principal); K31.89 Other diseases of stomach and duodenum
CPT/HCPCS: A9541

== ENCOUNTER 2022-08-03 13:00 | Outpatient (RCR) | payer MEDICARE, OTHER | END 2022-08-04 | disposition home or self-care (01) | LOC: MKS.ESL.OT | DX: R53.1 Weakness (principal); R47.1 Dysarthria and anarthria; Z86.73 Personal history of transient ischemic attack (TIA), and cerebral infarction without residual deficits ==

== ENCOUNTER 2022-08-31 13:00 | Outpatient (RCR) | payer MEDICARE, OTHER | END 2022-09-03 | disposition home or self-care (01) | LOC: MKS.ESL.OT | DX: I69.322 Dysarthria following cerebral infarction (principal); I69.359 Hemiplegia and hemiparesis following cerebral infarction affecting unspecified side ==

== ENCOUNTER 2022-11-30 13:00 | Outpatient (RCR) | payer MEDICARE, OTHER | END 2022-12-04 | disposition home or self-care (01) | LOC: MKS.ESL.OT | DX: I69.322 Dysarthria following cerebral infarction (principal); I69.359 Hemiplegia and hemiparesis following cerebral infarction affecting unspecified side ==

== ENCOUNTER → 2023-01-04 | Outpatient (RCR) | payer MEDICARE, OTHER | END | disposition home or self-care (01) | LOC: MKS.ESL.OT → WSST 12-07 13:45 → MKS.ESL.OT 12-12 13:00 → MKS.ESL.PT 12-19 14:30 → MKS.ESL.OT 12-21 13:00 → MKS.ESL.PT 12-26 13:30 → MKS.ESL.OT 12-28 13:00 | DX: R53.1 Weakness (principal); Z86.73 Personal history of transient ischemic attack (TIA), and cerebral infarction without residual deficits ==

== ENCOUNTER 2023-02-01 13:00 | Outpatient (RCR) | payer MEDICARE, OTHER | END 2023-02-03 | disposition home or self-care (01) | LOC: MKS.ESL.OT | DX: R53.1 Weakness (principal); Z86.73 Personal history of transient ischemic attack (TIA), and cerebral infarction without residual deficits ==

== ENCOUNTER 2023-04-19 13:00 | Outpatient (RCR) | payer MEDICARE, OTHER | END 2023-05-06 | disposition home or self-care (01) | LOC: MKS.ESL.OT | DX: R53.1 Weakness (principal); Z86.73 Personal history of transient ischemic attack (TIA), and cerebral infarction without residual deficits ==

== ENCOUNTER 2023-05-31 13:00 | Outpatient (RCR) | payer MEDICARE, OTHER | END 2023-06-06 | disposition home or self-care (01) | LOC: MKS.ESL.OT | DX: R53.1 Weakness (principal); R47.1 Dysarthria and anarthria; Z86.73 Personal history of transient ischemic attack (TIA), and cerebral infarction without residual deficits ==

== ENCOUNTER 2023-07-31 13:45 | Outpatient (RCR) | payer MEDICARE, OTHER | END 2023-08-05 | disposition home or self-care (01) | LOC: MKS.ESL.PT | DX: I69.359 Hemiplegia and hemiparesis following cerebral infarction affecting unspecified side (principal) ==

== ENCOUNTER 2023-11-01 14:30 | Outpatient (RCR) | payer MEDICARE, OTHER | END 2023-11-04 | LOC: MKS.ESL.PT | DX: I69.322 Dysarthria following cerebral infarction (principal) ==

== ENCOUNTER 2024-01-31 13:45 | Outpatient (RCR) | payer MEDICARE, OTHER | END 2024-02-04 | disposition home or self-care (01) | LOC: WSST | DX: R47.1 Dysarthria and anarthria (principal); Z86.73 Personal history of transient ischemic attack (TIA), and cerebral infarction without residual deficits ==